=== PATIENT | female | born 1980 | race African-American/Black ===

== ENCOUNTER 2018-10-06 12:02 | Emergency (ER) | payer OTHER ==
[~2018-10-06] VITALS: Ht 177.8 cm; Wt 100.0 kg
[~2018-10-06 12:02] MED LIST: ONDA4 PO; PREN-64 PO
[2018-10-06 14:15] VITALS: BP 138/80
[2018-10-06] MEDS ORDERED: IBUPROFEN 600 MG TABLET PO ONE (14:45)
[2018-10-06] MEDS ORDERED: ACETAMINOPHEN 500 MG TABLET PO ONE (14:45)
== END 2018-10-06 17:00 | disposition home or self-care (01) ==
LOC: EMS 12:05
DX: M54.5 Low back pain (principal); M25.551 Pain in right hip; I10 Essential (primary) hypertension; F17.210 Nicotine dependence, cigarettes, uncomplicated; V49.49XA Driver injured in collision with other motor vehicles in traffic accident, initial encounter; Y93.89 Activity, other specified; Y92.488 Other paved roadways as the place of occurrence of the external cause; Y99.8 Other external cause status
CPT/HCPCS: 73502; 99406